=== PATIENT | male | born 1965 | race Caucasian/White ===

== ENCOUNTER → 2020-02-16 | Outpatient (CLI) | payer OTHER ==
[2020-02-16 11:39] LABS: Basophils # (A) 0.1 k/uL (0-0.2); Basophils % (A) 1 %; Eosinophils # (A) 0.2 k/uL (0-0.7); Eosinophils % (A) 4 %; HCT 43.2 % (39.0-53.0); HGB 14.9 gm/dL (13.0-17.5); Lymphocytes # (A) 1.3 k/uL (1.0-4.8); Lymphocytes % (A) 31 %; MCH 34.9 pg (25.0-35.0); MCHC 34.5 g/dL (31.0-37.0); MCV 101.2 fL (80.0-100.0); Monocytes # (A) 0.3 k/uL (0-1.0); Monocytes % (A) 6 %; Neutrophils # (A) 2.3 k/uL (1.3-7.7); Neutrophils % (A) 56 %; Platelet Count 170 k/uL (150-450); RBC 4.27 m/uL (4.30-5.90); RDW 13.4 % (11.5-15.5); WBC 4.2 k/uL (3.8-10.6)
[2020-02-16 11:42] LABS: INR 0.9 (<1.2); Prothrombin Time 9.7 sec (9.0-12.0)
[2020-02-16 11:54] LABS: African American GFR (CKD) >90 (>60 ml/min/1.73 sqM); Anion Gap 9 mmol/L; Blood Urea Nitrogen 17 mg/dL (9-20); Calcium 9.5 mg/dL (8.4-10.2); Carbon Dioxide 28 mmol/L (22-30); Chloride 96 mmol/L (98-107); Glucose 145 mg/dL (74-99); Non-African American GFR(CKD) 90 (>60 ml/min/1.73 sqM); Potassium 4.4 mmol/L (3.5-5.1); Sodium 133 mmol/L (137-145)
--- NOTE | 2020-02-16 14:04 | XR ---
EXAMINATION TYPE: XR chest 2V DATE OF EXAM: 02/16/2020 COMPARISON: NONE HISTORY: Shortness of breath TECHNIQUE: Frontal and lateral views of the chest are obtained. FINDINGS: Scattered senescent parenchymal changes noted. Hyperinflation compatible with COPD. No evidence for infiltrate. No evidence for atelectasis. Heart size is stable. Mediastinal structures are stable and grossly unremarkable. No evidence for hilar prominence. Degenerative changes dorsal spine. IMPRESSION: 1. No evidence for acute pulmonary disease.
== END | disposition home or self-care (01) ==
LOC: LABPAT 10:29
PROVIDERS: ATTEND Urology
DX: Z01.818 Encounter for other preprocedural examination (principal); Z01.812 Encounter for preprocedural laboratory examination; Z01.810 Encounter for preprocedural cardiovascular examination; C61 Malignant neoplasm of prostate
CPT/HCPCS: 36415; 71046; 80048; 85025; 85610; 93005

== ENCOUNTER 2020-02-23 11:04 | Observation (INO) | payer OTHER ==
--- NOTE | 2020-02-17 17:44 | P.HPIHPCON ---
History of Present Illness H&P Date: 02/23/20 Chief Complaint: prostate cancer Mr Sanchez is 59 yo male with hx of pebbles 7(3+4) prostate cancer. We discussed with him the options including surgery and radiation therapy. We discussed the risk and benefits with him of each approach. I discussed with surgery the risk of urinary incontinence or erectile dysfunction, I also discussed with him risk of injury to nearby organs including but not limited bowels, rectum, bladder and blood vessels. I also discussed the risk from anesthesia with him. Which included blood clots, heart attack, stroke and even . He understood all the risk and agreed to proceed with a robotic-assisted radical prostatectomy and pelvic lymph node dissection Consent for Procedure: I have explained the operation/procedure to the patient, including the risks, benefits, side effects, alternative therapies (including not receiving the proposed treatment or service), the likelihood of the patient achieving his/her goals, and potential recuperation problems for the procedure/sedation/analgesia, as well as any blood products, if indicated. I also explained to the patient the risks, benefits and side effects of the alternatives, as well as the risks related to not receiving the proposed procedure, care, treatment, or services. Surgical - Exam - General well developed, well nourished, no distress - Respiratory normal expansion, normal respiratory effort - Abdomen Abdomen: soft, non tender Assessment and Plan Assessment: 54 yo male with hx of prostate cancer -OR for robotic prostatectomy and PLND
[2020-02-18 13:02] VITALS: BMI 25.8
[~2020-02-23 11:04] MED LIST: FAMOTIDINE 20 MG/2 ML VIAL IV PRN; HYDROmorphone 0.5 MG/0.5 ML SYRINGE IVP PRN
[2020-02-23] MEDS ORDERED: LIDOCAINE 1% (10MG/ML) FOR IV START INTRADERMA ONE ×2 (11:50)
[2020-02-23] MEDS: LACTATED RINGERS 1,000 ML IV SCH (11:50)
[2020-02-23] MEDS ORDERED: ONDANSETRON 4 MG/2 ML VIAL ONE (11:51)
[2020-02-23] MEDS ORDERED: ONDANSETRON 4 MG/2 ML VIAL IVP ONE (11:55)
[2020-02-23] MEDS ORDERED: DEXAMETHASONE SOD PHOSPHATE 10 MG/ML 1 ML VIAL IV ONE (11:56)
[2020-02-23] MEDS ORDERED: MIDAZOLAM 2 MG/2 ML VIAL IVP ONE (11:57)
[2020-02-23] MEDS ORDERED: SUCCINYLCHOLINE CHLORIDE 100 MG/5 ML SYR IV ONE (12:39)
[2020-02-23] MEDS ORDERED: ROCURONIUM BROMIDE 10 MG/ML 5 ML VIAL IV ONE (12:39)
[2020-02-23] MEDS ORDERED: LIDOCAINE 1% INJ 10MG/ML (20 ML MDV) ONE (12:39)
[2020-02-23] MEDS ORDERED: fentaNYL (PF) 50 MCG/ML 2 ML AMP ONE (12:39)
[2020-02-23] MEDS ORDERED: HYDROmorphone (PF) 1 MG/ML ONE (12:39)
[2020-02-23] MEDS ORDERED: PROPOFOL 10 MG/ML 20 ML VIAL IV ONE (12:39)
[2020-02-23] MEDS ORDERED: GLYCOPYRROLATE 0.2 MG/ML 2 ML VIAL ONE (12:39)
[2020-02-23] MEDS ORDERED: NEOSTIGMINE 1 MG/ML 10 ML VIAL ONE (12:39)
[2020-02-23] MEDS ORDERED: MIDAZOLAM 2 MG/2 ML VIAL ONE (12:39)
[2020-02-23] MEDS ORDERED: traMADol 50 MG TAB PO PRN (12:54)
[2020-02-23] MEDS ORDERED: LACTATED RINGERS 1,000 ML IV ONE (13:15)
[2020-02-23] MEDS ORDERED: BUPIVACAINE (PF) 0.25% 30 ML VIAL SQ ONE ×2 (14:04→18:55)
--- NOTE | 2020-02-23 19:14 | P.OP ---
Date of Procedure: 02/23/20 Preoperative Diagnosis: prostate cancer Postoperative Diagnosis: same Procedure(s) Performed: robotic prostatectomy and pelvic lymph node dissection Anesthesia: BRANDIN Surgeon: Shub[facility] Supervisor #1: Angelo Warner Estimated Blood Loss (ml): 150 Pathology: other (prostate, seminal vesicle and bilateral pelvic lymph nodes) Condition: stable Disposition: PACU Indications for Procedure: Mr Espinosa is 54 yo male with hx of pebbles 7(3+4) prostate cancer. We discussed with him the options including surgery and radiation therapy. We discussed the risk and benefits with him of each approach. I discussed with surgery the risk of urinary incontinence or erectile dysfunction, I also discussed with him risk of injury to nearby organs including but not limited bowels, rectum, bladder and blood vessels. I also discussed the risk from anesthesia with him. Which included blood clots, heart attack, stroke and even . He understood all the risk and agreed to proceed with a robotic-assisted radical prostatectomy and pelvic lymph node dissection Operative Findings: posterior prostate closely adhered to the rectum, poorly defined posterior plane Description of Procedure: After preoperative antibiotics were started, the patient was taken to the operating room. Anesthesia was induced and the patient was placed in a low lithitomy position, with adequate padding of the pressure points, shoulders, back, legs and arms. He was then prepped and draped in the standard fashion. A critical pause was performed using two patient identifiers. A 16F zheng catheter was placed to gravity drainage. A pneumo-peritoneum was created with placement of a Veress needle to 20 mm Hg without complication, and a 8 Fr trocar was placed above the umbillicus. Under direct vision a 8mm robotic ports was placed lateral to each rectus slightly below the camera port. The left iliac fossa 8mm port was placed. The right malt specifications control assistant right iliac fossa 12mm port and right paramedian 5mm portwere placed. After the patient was placed in the trendelenberg position, the robot was then docked to the 8mm robotic ports and then each robotic arm and tower was checked in relation to the patient's legs and hands to avoid inadvertent compression. The peritoneal cavity was inspected. An inverted U-shaped incision began laterally to the left medial umbilical ligament and extended high across the midline to the right umbilical ligament. The limbs of the "U" extended to the level of the vasa on both sides. We next developed the preperitoneal space and the space of Retzius. Cautery was used to dissected the bladder away from the prostate. After the anterior bladder neck was incised and the bladder entered the the posterior bladder neck was exposed and the ureteral orifces identified. The posterior b ladder neck was then incised and dissected away from the prostate. The vas and the seminal vesicles were now exposed and dissected to their insertions into the prostate and were not spared. The posterior layer of the Denonvillier's fascia was incised to enter maik the plane between prostate and perirectal fat. The posterior plane was poorly defined and the prostate was closely adherent to the prostate Each lateral pedicle was controlled with clips and cautery for hemostasis. bilateral standard nerve preservation was performed. The puboprostatic ligament was incised where it inserted into the apex of the prostate and a plane between urethra and dorsal venous complex developed to expose the anterior urethral surface. The anterior wall of the urethra was transected with the cut setting a few millimeters distal to the apex of the prostate. The dorsal vein was ligated using 3-0 V lock bilateral obturator and external iliac lymph node packets were carefully dissected after careful visualization of the hypogastric artery and obturator nerve. There was careful attention paid to hemostasis with judicious use of cautery. The urethrovesical anastomosis was performed . the posterior denovillers was reapproximated using 3-0 V lock. A 6 and 9 inch 3-0 V-Lock suture was used to anastomose the urethra and bladder, starting at the 6:00 posterior position. Mucosa was secured in every stitch, to ensure a mucosa to mucosa anastomosis. The stitch was regularly cinched and the anastomosis tightened. Care was taken to not violate the ureteral orifices. The Zheng catheter was advanced, the bladder filled, and the anastomosis was tested, as described above. Anastomsis was watertight at 150 mL The periumbilical fascia was closed with 1-0-PDS suture in simple interrupted fashion. All ports were closed with a subcuticular 4-0 monocryl and Dermabond. Sponge, instrument, and needle counts were correct at the end of the case x2. All specimens including prostate and lymph nodes were sent to pathology for diagnosis and will be available in a week. The patient tolerated the surgery well and without complication. He awoke without difficulty and was taken to the recovery room in stable condition
[2020-02-23 19:51] VITALS: RESP 18
[2020-02-23] MEDS: HEPARIN SODIUM,PORCINE 5,000 UNIT/ML 1 ML VIAL SQ SCH ×2 (20:17→23:12)
[2020-02-23] MEDS: KETOROLAC 30 MG/ML 1 ML VIAL IVP SCH ×2 (20:17→23:12)
[2020-02-23] MEDS ORDERED: PRAVASTATIN SODIUM 20 MG TAB PO SCH (21:00)
[2020-02-23] MEDS: D5-0.45% NACL WITH KCL 20MEQ/L 1,000 ML IV SCH ×2 (21:42→21:45)
[2020-02-24] MEDS: D5-0.45% NACL WITH KCL 20MEQ/L 1,000 ML IV SCH ×2 (05:47→14:34)
[2020-02-24] MEDS: KETOROLAC 30 MG/ML 1 ML VIAL IVP SCH ×2 (05:47→13:09)
[2020-02-24] MEDS ORDERED: PANTOPRAZOLE 40 MG TABLET PO SCH (07:30)
[2020-02-24] MEDS: HEPARIN SODIUM,PORCINE 5,000 UNIT/ML 1 ML VIAL SQ SCH (08:05)
[2020-02-24 08:09] VITALS: BP 122/84; PULSE 104; TEMP 98.3
[2020-02-24] MEDS ORDERED: amLODIPine 5 MG TAB PO SCH (09:00)
--- NOTE | 2020-02-24 12:27 | P.DS ---
Providers Date of admission: 02/24/20 09:49 Attending physician: Shubham Sewell MD Primary care physician: [facility] Course: Mr Espinosa is 54 yo male with hx of prostate cancer. He underwent robotic assisted prostatectomy on . Please see op note dated 02/22 for full surgery details. He had unevetful post operative course He was discharged home on POD #1. At time of discharge he was tolerating diet, ambulating, pain is well controlled Plan - Discharge Summary Discharge Rx Participant: No New Discharge Prescriptions: New Ibuprofen 600 mg PO Q8H #30 tab Levofloxacin [Levaquin] 500 mg PO DAILY 3 Days #3 tab No Action amLODIPine BESYLATE 5 mg PO DAILY Lisinopril-Hctz 20-25 mg [Zestoretic 20-25] 1 tab PO DAILY Aspirin [Adult Low Dose Aspirin EC] 81 mg PO DAILY Pravastatin Sodium [Pravachol] 20 mg PO HS Omeprazole Magnesium [PriLOSEC OTC] 20 mg PO DAILY Discharge Medication List Aspirin [Adult Low Dose Aspirin EC] 81 mg PO DAILY 02/18/20 [History] Lisinopril-Hctz 20-25 mg [Zestoretic 20-25] 1 tab PO DAILY 02/18/20 [History] Omeprazole Magnesium [PriLOSEC OTC] 20 mg PO DAILY 02/18/20 [History] Pravastatin Sodium [Pravachol] 20 mg PO HS 02/18/20 [History] amLODIPine BESYLATE 5 mg PO DAILY 02/18/20 [History] Ibuprofen 600 mg PO Q8H #30 tab 02/24/20 [Rx] Levofloxacin [Levaquin] 500 mg PO DAILY 3 Days #3 tab 02/24/20 [Rx] Activity/Diet/Wound Care/Special Instructions: No heavy lifting or straining for 4 weeks You may shower tomorrow but not bath Avoid heavy and greasy meals Start your antibiotics on
== END 2020-02-24 15:56 | disposition home or self-care (01) ==
LOC: OR 11:04 → 4SSUR 19:23 → OR 02-24 09:42 → 4SSUR 02-24 09:49
PROVIDERS: ADMIT Urology; ATTEND Urology
DX: C61 Malignant neoplasm of prostate (principal); R94.31 Abnormal electrocardiogram [ECG] [EKG]; I10 Essential (primary) hypertension; E78.5 Hyperlipidemia, unspecified; F17.210 Nicotine dependence, cigarettes, uncomplicated; K21.9 Gastro-esophageal reflux disease without esophagitis; Z79.82 Long term (current) use of aspirin; Z79.899 Other long term (current) drug therapy
CPT/HCPCS: 38571; 55866; S2900; 86850; 86900; 86901; 88307; 88309